=== PATIENT | female | born 1995 | race African-American/Black ===

== ENCOUNTER 2018-01-02 16:20 | Emergency (ER) | payer MEDICAID ==
[2018-01-02 16:34] VITALS: BP 135/55; PULSE 77; RESP 18; TEMP 99; O2SAT 100
--- NOTE | 2018-01-02 17:39 | RADRPT ---
EXAM DATE/TIME: 01/02/2018 17:26 [place] COMPARISON: No previous studies available for comparison. INDICATIONS : Left ankle pain with no known injury. MEDICAL HISTORY : None. SURGICAL HISTORY : None. ENCOUNTER: Initial ACUITY: 1 day PAIN SCORE: 7/10 LOCATION: Left lateral foot. FINDINGS: Three view exam was performed of the left ankle. The bony structures are in normal alignment. No ev idence of fracture, dislocation, or soft tissue swelling. The ankle mortise is intact. No radiopaqu e foreign bodies are seen. Bony mineralization is normal. CONCLUSION: Unremarkable examination of the left ankle. Rudy Gold MD on January 02, 2018 at 17:36 Board Certified Radiologist. This report was verified electronically.
--- NOTE | 2018-01-02 17:52 | PD ---
HPI Chief Complaint: Injury Time Seen by Provider: 17:11 Travel History International Travel<30 days: No Contact w/Intl Traveler<30days: No Traveled to known affect area: No History of Present Illness HPI 22-year-old female presents emergency department with pain in the left ankle for the last 2 days. Patient states no specific injury but is worried about possible fracture dislocation. Patient felt it was somewhat swollen this morning upon awakening. She has not taken anything for it or used any ice or splinting. Pain is currently 6 out of 10 and worse with ambulation. She denies numbness, tingling, or loss of function. She denies any other acute medical issues. She has no known drug allergies. [facility] Past Medical History Medical History: Denies Significant Hx Diminished Hearing: No ?: Not Past Surgical History Surgical History: No Previous Surgery Social History Alcohol Use: Yes (SOCAILLY ) Tobacco Use: No Substance Use: No Allergies-Medications (Allergen,Severity, Reaction): Coded Allergies: No Known Allergies (Unverified , 01/02/18) Reported Meds & Prescriptions Reported Meds & Active Scripts Active No Active Prescriptions or Reported Medications Review of Systems Except as stated in HPI: all other systems reviewed are Neg General / Constitutional: No: Fever Eyes: No: Visual changes HENT: No: Headaches Cardiovascular: No: Chest Pain or Discomfort Respiratory: No: Shortness of Breath Gastrointestinal: No: Abdominal Pain Genitourinary: No: Dysuria Musculoskeletal: Positive: Arthralgias, Pain, No: Myalgias, Limited ROM Skin: No Rash Neurologic: No: Weakness Psychiatric: No: Depression Endocrine: No: Polydipsia Hematologic/Lymphatic: No: Easy Bruising Physical Exam Narrative GENERAL: Patient appears in no acute distress per SKIN: Warm and dry. Normal color. Normal turgor HEAD: Atraumatic. Normocephalic. EYES: Pupils equal and round. No scleral icterus. No injection or drainage. ENT: No nasal bleeding or discharge. Mucous membranes pink and moist. NECK: Trachea midline. No JVD. CARDIOVASCULAR: Regular rate and rhythm. RESPIRATORY: No accessory muscle use. Clear to auscultation. Breath sounds equal bilaterally. GASTROINTESTINAL: Abdomen soft, non-tender, nondistended. Hepatic and splenic margins not palpable. MUSCULOSKELETAL: Extremities without clubbing, cyanosis, or edema. No obvious deformities. Left ankle appears normal to my inspection. Range of motion is intact with mild tenderness with palpation along the lateral malleolus. Patient is noted to have moderate pes planus bilaterally without plantar pain. No other significant findings are noted. NEUROLOGICAL: Awake and alert. No obvious cranial nerve deficits. Motor grossly within normal limits. Five out of 5 muscle strength in the arms and legs. Normal speech. PSYCHIATRIC: Appropriate mood and affect; insight and judgment normal. Data Data Last Documented VS Vital Signs Date Time Temp Pulse Resp B/P (MAP) Pulse Ox O2 Delivery O2 Flow Rate FiO2 01/02/18 16:34 99.0 77 18 135/55 (81) 100 Orders Orders Ankle, Complete ([id number]) (01/02/18 17:11) [facility] Medical Decision Making Medical Screen Exam Complete: Yes Emergency Medical Condition: Yes Differential Diagnosis Left ankle pain. Left ankle sprain. Possible fracture. Narrative Course X-ray of the left ankle is ordered. X-ray shows no acute findings per radiologist. Patient is placed in a ankle stirrup splint. Patient is given a prescription for ibuprofen 600 mg 4 times daily #40. Patient should wear supportive footwear, and follow-up if not improving. Diagnosis Primary Impression: Left ankle sprain Qualified Codes: S93.402A - Sprain of unspecified ligament of left ankle, initial encounter Patient Instructions: General Instructions Additional Instructions: X-ray shows no acute findings per radiologist. Patient is placed in a ankle stirrup splint. Patient is given a prescription for ibuprofen 600 mg 4 times daily #40. Patient should wear supportive footwear, and follow-up if not improving. Med/Other Pt SpecificInfo: Prescription(s) given Scripts No Active Prescriptions or Reported Meds Disposition: 01 DISCHARGE HOME Condition: Stable Quentin Lyn Jan 02, 2018 17:52
[2018-01-02] MEDS ORDERED: IBUP-232 PO (17:55)
== END 2018-01-02 18:27 | disposition home or self-care (01) ==
LOC: NEPD 16:20
DX: S93.402A Sprain of unspecified ligament of left ankle, initial encounter (principal); X58.XXXA Exposure to other specified factors, initial encounter
CPT/HCPCS: 73610; 99283; L1906